=== PATIENT | male | born 1950 | race Caucasian/White ===

== ENCOUNTER 2016-11-03 11:42 | Emergency (ER) | payer OTHER ==
[2016-11-03 12:39] LABS: BASOPHIL 0.2 % (0-2); EOSINOPHIL 2.2 % (0-7); HCT 47.2 % (42.0-52.0); HGB 15.8 g/dl (13.2-18.0); LYMPHOCYTE 32.2 % (15-48); MCH 32.2 pg (25.0-31.0); MCHC 33.5 g/dL (32.0-36.0); MCV 96.3 fL (78.0-100.0); MONOCYTE 11.4 % (0-12); MPV 10.3 fL (6.0-9.5); PLT 135 K/uL (150-400); RDW 14.6 % (11.5-14.0); WBC 5.4 K/uL (4.0-10.5)
[2016-11-03 12:48] LABS: INR 1.03 (0.9-1.2); PROTHROMBIN TIME 12.6 SECONDS (11.4-13.2)
[2016-11-03 12:55] LABS: ALBUMIN 4.1 g/dL (3.4-4.8); BILIRUBIN - TOTAL 0.6 mg/dL (0.1-1.0); GLOBULIN (CALCULATION) 3.7 g/dL (2.2-4.2); MAGNESIUM 2.05 mg/dL (1.40-2.10); POTASSIUM 4.5 mmol/L (3.5-5.1); TOTAL PROTEIN 7.8 g/dL (6.4-8.3)
[2016-11-03 12:57] LABS: MYOGLOBIN 109 ng/mL (26-65); PRO-BNP 79 pg/mL (0-125); TROPONIN T < 0.010 ng/mL
[2016-11-03 12:59] LABS: CKMB 6.42 ng/mL (0.97-4.94)
== END 2016-11-03 16:37 | disposition home or self-care (01) ==
LOC: FER 11:42
PROVIDERS: Internal Medicine
DX: R07.89 Other chest pain (principal); K21.9 Gastro-esophageal reflux disease without esophagitis; E11.9 Type 2 diabetes mellitus without complications; I10 Essential (primary) hypertension; J44.9 Chronic obstructive pulmonary disease, unspecified; F17.210 Nicotine dependence, cigarettes, uncomplicated; Z79.82 Long term (current) use of aspirin; Z79.899 Other long term (current) drug therapy
CPT/HCPCS: 36415; 71010; 80053; 82550; 82553; 83735; 83874; 83880; 84484; 85025; 85610; 85730; 93005

== ENCOUNTER 2021-01-14 10:02 | Inpatient (IN) | payer MEDICARE, OTHER ==
[~2021-01-14] VITALS: Ht 170.2 cm; Wt 80.8 kg
[~2021-01-14 10:02] MED LIST: COSOPT PF EYE1 EACH EYEBOTH; LIBRIUM25 MG PO; NORVASC5 MG PO; PROTONIX 40MG T40 MG PO; VALSARTAN-HCTZ1 EAC4 PO
[2021-01-14 10:49] LABS: BASOPHIL 0.4 % (0-2); HCT 49.9 % (42.0-52.0); HGB 17.6 g/dl (13.2-18.0); LYMPHOCYTE 22.8 % (15-48); MCH 32.8 pg (25.0-31.0); MCHC 35.3 g/dL (32.0-36.0); MCV 92.9 fL (78.0-100.0); MONOCYTE 12.5 % (0-12); MPV 12.4 fL (6.0-9.5); NEUTROPHIL 63.2 % (41-80); NRBC 0; PLT 175 K/uL (150-400); RBC 5.37 M/uL (4.70-6.00); RDW 15.3 % (11.5-14.0); WBC 7.2 K/uL (4.0-10.5)
[2021-01-14 11:01] LABS: BILIRUBIN NEGATIVE (NEGATIVE); BLOOD TRACE-INTACT Ery/uL (NEGATIVE); CLARITY CLEAR (CLEAR); COLOR YELLOW (YELLOW); GLUCOSE (U) NORMAL (NORMAL); LEUKOCYTES NEGATIVE Leu/uL (NEGATIVE); NITRITE NEGATIVE (NEGATIVE); PROTEIN NEGATIVE (NEGATIVE); SPECIFIC GRAVITY 1.015 (1.001-1.030); UROBILINOGEN 0.2 mg/dL (0.2-1.0); pH 7.5 (5.0-9.0)
[2021-01-14 11:04] LABS: AMPHETAMINES NEGATIVE (NEGATIVE); BARBITURATES NEGATIVE (NEGATIVE); ECSTASY (MDMA) NEGATIVE (NEGATIVE); MARIJUANA (THC) NEGATIVE (NEGATIVE); METHADONE NEGATIVE (NEGATIVE); OPIATES NEGATIVE (NEGATIVE); OXYCODONE NEGATIVE (NEGATIVE)
[2021-01-14 11:45] LABS: PROTHROMBIN TIME 12.6 SECONDS (11.8-13.4); PTT 31.4 SECONDS (24.4-34.7)
[2021-01-14 11:57] LABS: PRO-BNP 894 pg/mL (<125)
[2021-01-14] MEDS ORDERED: LOSARTAN-HCTZ1 EAC1 PO (12:15)
[2021-01-14 13:14] LABS: LACTIC ACID 1.3 mmol/L (0.4-1.9)
[2021-01-14 13:26] LABS: ALBUMIN 3.6 g/dL (3.4-5.0); ALKALINE PHOSHATASE 140 U/L (46-116); ALT 29 U/L (16-63); AST 31 U/L (15-37); BILIRUBIN - TOTAL 0.6 mg/dL (0.2-1.0); BUN 14 mg/dL (7-18); BUN/CREAT RATIO (CALC) 18.4 RATIO; CHLORIDE 99 mmol/L (98-107); CO2 (BICARBONATE) 28 mmol/L (21-32); CREATININE 0.76 mg/dL (0.67-1.17); GLOBULIN (CALCULATION) 3.8 g/dL; GLUCOSE 103 mg/dL (74-106); LDH 150 U/L (85-227); LIPASE 99 U/L (73-393); POTASSIUM 4.3 mmol/L (3.5-5.1); TOTAL PROTEIN 7.4 g/dL (6.4-8.2)
[2021-01-14] MEDS ORDERED: BENADRYL25 MG PO (16:31)
[2021-01-15 03:53] LABS: BASOPHIL 0.3 % (0-2); EOSINOPHIL 1.1 % (0-7); HCT 44.2 % (42.0-52.0); HGB 14.7 g/dl (13.2-18.0); LYMPHOCYTE 34.6 % (15-48); MCH 31.9 pg (25.0-31.0); MCHC 33.3 g/dL (32.0-36.0); MCV 95.9 fL (78.0-100.0); MONOCYTE 11.2 % (0-12); MPV 10.5 fL (6.0-9.5); NEUTROPHIL 52.7 % (41-80); NRBC 0; PLT 145 K/uL (150-400); RBC 4.61 M/uL (4.70-6.00); RDW 13.3 % (11.5-14.0); WBC 7.1 K/uL (4.0-10.5)
[2021-01-15 04:22] LABS: CREATININE 0.88 mg/dL (0.67-1.17); POTASSIUM 4.1 mmol/L (3.5-5.1)
[2021-01-15] MEDS ORDERED: DIGITEK250 MCG PO (12:01)
[2021-01-15] MEDS ORDERED: ELIQUIS5 MG PO (12:04)
--- NOTE | 2021-01-15 13:57 | NUR ---
1300 PATIENT DISCHARGED BY WHEELCHAIR. IV AND MONITOR DCD. VERBALIZED UNDERSTANDING OF DISCHARE INSTRUCTION. WILL CALL ON SUNDAY FOR APPOINTMENT WITH CARDIOLOGY
== END 2021-01-15 13:12 | disposition home or self-care (01) | DRG 310 ==
LOC: FER 10:02 → FTCU 15:28
PROVIDERS: Emergency Medicine; ADMIT Internal Medicine
DX: I48.0 Paroxysmal atrial fibrillation (principal); I48.92 Unspecified atrial flutter; I10 Essential (primary) hypertension; K21.9 Gastro-esophageal reflux disease without esophagitis; F10.10 Alcohol abuse, uncomplicated; F17.200 Nicotine dependence, unspecified, uncomplicated; Z20.822 Contact with and (suspected) exposure to COVID-19; E78.5 Hyperlipidemia, unspecified; Z79.899 Other long term (current) drug therapy; Z90.89 Acquired absence of other organs; Z98.890 Other specified postprocedural states
CPT/HCPCS: 36415; 71045; 80048; 80053; 80305; 81001; 83605; 83615; 83690; 83735; 83880; 84145; 84439; 84443; 84484; 85025; 85610; 85730; 93005; 94762; G0480; J1650; J3411; J3475; J7030; U0002

== ENCOUNTER 2021-01-15 18:52 | Emergency (ER) | payer MEDICARE, OTHER ==
[~2021-01-15 18:52] MED LIST changes: +BENADRYL25 MG PO; +DIGITEK250 MCG PO; +ELIQUIS5 MG PO; +LOSARTAN-HCTZ1 EAC1 PO
[2021-01-15 20:04] LABS: BASOPHIL 0.4 % (0-2); EOSINOPHIL 1.1 % (0-7); HCT 46.2 % (42.0-52.0); HGB 15.3 g/dl (13.2-18.0); LYMPHOCYTE 24.2 % (15-48); MCHC 33.1 g/dL (32.0-36.0); MCV 96.7 fL (78.0-100.0); MONOCYTE 11.8 % (0-12); MPV 10.7 fL (6.0-9.5); NEUTROPHIL 62.1 % (41-80); NRBC 0; PLT 156 K/uL (150-400); RBC 4.78 M/uL (4.70-6.00); RDW 13.2 % (11.5-14.0); WBC 8.4 K/uL (4.0-10.5)
[2021-01-15 20:14] LABS: BUN/CREAT RATIO (CALC) 24.7 RATIO; CREATININE 0.81 mg/dL (0.67-1.17); POTASSIUM 4.4 mmol/L (3.5-5.1)
[2021-01-18] MEDS ORDERED: VALSARTAN-HCTZ1 EAC1 PO (11:38)
== END 2021-01-15 21:15 | disposition home or self-care (01) ==
LOC: FER 18:52
PROVIDERS: Emergency Medicine Emergency Medical Services
DX: I10 Essential (primary) hypertension (principal); I48.91 Unspecified atrial fibrillation; J44.9 Chronic obstructive pulmonary disease, unspecified; F17.210 Nicotine dependence, cigarettes, uncomplicated
CPT/HCPCS: 36415; 80048; 84484; 85025; 93005

== ENCOUNTER → 2021-05-03 | Day surgery (SDC) | payer MEDICARE, OTHER ==
[~2021-05-03] VITALS: Ht 170.2 cm; Wt 80.8 kg
[~2021-05-03] MED LIST changes: +AMIODARONE HCL200 MG PO; +CARDIZEM CD240 MG PO; +HCTZ12.5 MG PO; +LOSARTAN POTASS25 MG PO; -LOSARTAN-HCTZ1 EAC1 PO; +MAGNESIUM OXID500 MG PO; +MYSOLINE50 MG PO; -PROTONIX 40MG T40 MG PO; +PROTONIX20 MG PO; +VALSARTAN-HCTZ1 EAC1 PO
[2021-05-03 10:46] LABS: HCT 44.6 % (42.0-52.0); HGB 15.4 g/dl (13.2-18.0); MCH 32.7 pg (25.0-31.0); MCHC 34.5 g/dL (32.0-36.0); MCV 94.7 fL (78.0-100.0); MPV 9.4 fL (6.0-9.5); RBC 4.71 M/uL (4.70-6.00); RDW 13.8 % (11.5-14.0); WBC 6.4 K/uL (4.0-10.5)
[2021-05-03 10:59] LABS: ALBUMIN 3.4 g/dL (3.4-5.0); BILIRUBIN - TOTAL 0.5 mg/dL (0.2-1.0); BUN/CREAT RATIO (CALC) 15.3 RATIO; CREATININE 0.72 mg/dL (0.67-1.17); GLOBULIN (CALCULATION) 3.6 g/dL; POTASSIUM 4.1 mmol/L (3.5-5.1)
== END | disposition home or self-care (01) ==
LOC: FAS 07:00
PROVIDERS: Orthopaedic Surgery
DX: G56.02 Carpal tunnel syndrome, left upper limb (principal); G56.22 Lesion of ulnar nerve, left upper limb; I10 Essential (primary) hypertension; I48.91 Unspecified atrial fibrillation; K21.9 Gastro-esophageal reflux disease without esophagitis; F17.200 Nicotine dependence, unspecified, uncomplicated; Z79.01 Long term (current) use of anticoagulants; Z79.899 Other long term (current) drug therapy
CPT/HCPCS: 36415; 71045; 80053; J0690; J1100; J2250; J2405; J2704; J3010; J7120

== ENCOUNTER 2021-07-26 10:06 | Emergency (ER) | payer MEDICARE, OTHER ==
[2021-07-26 10:44] LABS: BILIRUBIN NEGATIVE (NEGATIVE); BLOOD TRACE-INTACT Ery/uL (NEGATIVE); CLARITY CLEAR (CLEAR); COLOR YELLOW (YELLOW); GLUCOSE (U) NORMAL (NORMAL); LEUKOCYTES NEGATIVE Leu/uL (NEGATIVE); NITRITE NEGATIVE (NEGATIVE); PROTEIN NEGATIVE (NEGATIVE); SPECIFIC GRAVITY <=1.005 (1.001-1.030); UROBILINOGEN 0.2 mg/dL (0.2-1.0)
[2021-07-26 10:44] LABS: BASOPHIL 0.3 % (0-2); EOSINOPHIL 1.2 % (0-7); HCT 46.2 % (42.0-52.0); HGB 15.7 g/dl (13.2-18.0); LYMPHOCYTE 21.6 % (15-48); MCH 32.9 pg (25.0-31.0); MCV 96.9 fL (78.0-100.0); MONOCYTE 12.8 % (0-12); MPV 10.3 fL (6.0-9.5); NEUTROPHIL 63.8 % (41-80); NRBC 0; PLT 151 K/uL (150-400); RBC 4.77 M/uL (4.70-6.00); RDW 13.4 % (11.5-14.0); WBC 7.5 K/uL (4.0-10.5)
[2021-07-26 11:11] LABS: ALBUMIN 3.5 g/dL (3.4-5.0); BILIRUBIN - TOTAL 0.5 mg/dL (0.2-1.0); BUN/CREAT RATIO (CALC) 15.9 RATIO; CREATININE 0.82 mg/dL (0.67-1.17); GLOBULIN (CALCULATION) 3.5 g/dL; POTASSIUM 3.9 mmol/L (3.5-5.1)
== END 2021-07-26 11:58 | disposition home or self-care (01) ==
LOC: FER 10:06
PROVIDERS: Emergency Medicine
DX: R51.9 Headache, unspecified (principal); I10 Essential (primary) hypertension; J44.9 Chronic obstructive pulmonary disease, unspecified; Z79.01 Long term (current) use of anticoagulants; Z79.899 Other long term (current) drug therapy
CPT/HCPCS: 36415; 70450; 80053; 81001; 84484; 85025; 93005; J7030

== ENCOUNTER → 2021-11-07 | Day surgery (SDC) | payer MEDICARE, OTHER ==
[~2021-11-07] VITALS: Ht 170.2 cm; Wt 81.7 kg
[~2021-11-07] MED LIST changes: +DORZOLAMIDE-TIM10 ML OU; +SYNTHROID75 MCG PO; +VAZALORE81 MG PO
== END | disposition home or self-care (01) ==
LOC: FAS 11:21
DX: Z12.11 Encounter for screening for malignant neoplasm of colon (principal); D12.2 Benign neoplasm of ascending colon; D12.0 Benign neoplasm of cecum; D12.3 Benign neoplasm of transverse colon; D12.5 Benign neoplasm of sigmoid colon; Z86.010 Personal history of colon polyps; I10 Essential (primary) hypertension; I48.91 Unspecified atrial fibrillation; E03.9 Hypothyroidism, unspecified; K21.9 Gastro-esophageal reflux disease without esophagitis; F17.210 Nicotine dependence, cigarettes, uncomplicated; Z79.01 Long term (current) use of anticoagulants; Z79.82 Long term (current) use of aspirin; Z79.899 Other long term (current) drug therapy; Z72.89 Other problems related to lifestyle
CPT/HCPCS: J2704; J7120